=== PATIENT | male | born 1965 | race Caucasian/White ===

== ENCOUNTER 2017-10-11 19:19 | Emergency (ER) | payer OTHER ==
[~2017-10-11] VITALS: Ht 188 cm; Wt 93.0 kg
[2017-10-11 19:57] VITALS: BP 148/106
[2017-10-11] MEDS ORDERED: ASPirin 81 mg TAB PO ONE (20:00)
[2017-10-11] MEDS ORDERED: LORazepam 2MG/ML-1ML VIAL IV ONE (20:00)
[2017-10-11] MEDS ORDERED: SODIUM CHLORIDE 0.9% 1,000 ML IV ONE (20:00)
[2017-10-11] MEDS ORDERED: LORazepam 0.5 MG TAB PO ONE (20:15)
[2017-10-11 20:57] LABS: Basophils # (auto) 0.1 uL; Basophils % (auto) 1.3 % (0.0-2.0); Eosinophils # (auto) 0.2 uL; Eosinophils % (auto) 2.9 % (0.0-7.0); Hematocrit 44.3 % (41.0-53.0); Hemoglobin 15.4 g/dL (13.5-17.5); Lymphocytes # (auto) 1.9 uL; Lymphocytes % (auto) 24.2 % (10.0-50.0); Mean Corpuscular Hgb Conc. 34.9 g/dL (32.0-36.0); Mean Corpuscular Volume 94.5 fL (80.0-100.0); Monocytes # (auto) 0.8 uL; Neutrophils # (auto) 4.6 uL; Neutrophils % (auto) 60.6 % (37.0-80.0); Nucleated Red Blood Cells % 0.2 %; Platelet Count (auto) 210 10^3/uL (140-450); Red Blood Cells 4.68 10^6/uL (4.5-5.90); Red Cell Distribution Width 13.9 % (11.8-14.3); White Blood Cell 7.6 10^3/uL (4.4-10.8)
[2017-10-11 21:17] LABS: Alanine Aminotransferase 34 U/L (16-61); Albumin 4.1 g/dL (3.4-5.0); Anion Gap 7 (5-15); Aspartate Aminotransferase 22 U/L (15-37); BUN/Creatinine Ratio 18.2; Blood Alcohol < 3.0 mg/dL (0-5); Blood Urea Nitrogen 22 mg/dL (7-18); Calcium 8.6 mg/dL (8.5-10.1); Carbon Dioxide 26 mmol/L (21-32); Chloride 105 mmol/L (98-107); GFR African American 81 mL/min; GFR Non-African American 67 mL/min; Glucose 110 mg/dL (74-106); Magnesium 2.5 mg/dL (1.6-2.6); Potassium 3.9 mmol/L (3.5-5.1); Sodium 138 mmol/L (136-145)
[2017-10-11 21:22] LABS: Alkaline Phosphatase 56 U/L (45-117); Bilirubin, Total 1.1 mg/dL (0.2-1.0); Total Protein 7.8 g/dL (6.4-8.2)
== END 2017-10-11 20:29 | disposition left against medical advice (07) ==
LOC: ER 19:19
DX: F10.230 Alcohol dependence with withdrawal, uncomplicated (principal); I10 Essential (primary) hypertension; R07.9 Chest pain, unspecified
CPT/HCPCS: 36415; 80053; 80320; 83735; 83880; 84443; 84484; 85025; 93005; 94761

== ENCOUNTER 2018-11-27 17:29 | Emergency (ER) | payer OTHER ==
[~2018-11-27] VITALS: Ht 188 cm; Wt 90.7 kg
[2018-11-27 18:00] VITALS: BP 150/109
[2018-11-27 18:43] LABS: Basophils # (auto) 0.1 uL; Basophils % (auto) 1.1 % (0.0-2.0); Eosinophils # (auto) 0.1 uL; Eosinophils % (auto) 1.5 % (0.0-7.0); Hematocrit 44.7 % (41.0-53.0); Hemoglobin 15.7 g/dL (13.5-17.5); Lymphocytes # (auto) 1.6 uL; Lymphocytes % (auto) 21.2 % (10.0-50.0); Mean Corpuscular Hemoglobin 33.3 pg (28.0-32.0); Mean Corpuscular Hgb Conc. 35.2 g/dL (32.0-36.0); Mean Corpuscular Volume 94.6 fL (80.0-100.0); Monocytes # (auto) 0.7 uL; Neutrophils # (auto) 5.1 uL; Neutrophils % (auto) 67.2 % (37.0-80.0); Platelet Count (auto) 171 10^3/uL (140-450); Red Blood Cells 4.72 10^6/uL (4.5-5.90); Red Cell Distribution Width 13.6 % (11.8-14.3); White Blood Cell 7.7 10^3/uL (4.4-10.8)
[2018-11-27 18:59] LABS: Chloride 105 mmol/L (98-107); Potassium 3.5 mmol/L (3.5-5.1); Sodium 138 mmol/L (136-145)
[2018-11-27 19:04] LABS: Amphetamine Screen, Urine POSITIVE (NEGATIVE); Barbiturate Scree,Urine NEGATIVE (NEGATIVE); Benzodiazephine Screen, Urine NEGATIVE (NEGATIVE); Cannabinoid Screen, Urine NEGATIVE (NEGATIVE); Cocaine Screen, Urine NEGATIVE (NEGATIVE); Opiate Scree,Urine NEGATIVE (NEGATIVE); Phencyclidine Screen, Urine NEGATIVE (NEGATIVE)
[2018-11-27 19:05] LABS: Urine Bacteria NONE SEEN /hpf (None Seen); Urine Blood Negative /uL (Negative); Urine Specific Gravity 1.005 (1.001-1.035); Urine WBC <1 /hpf (0 - 3)
[2018-11-27 19:10] LABS: Alanine Aminotransferase 66 U/L (16-61); Albumin 4.3 g/dL (3.4-5.0); Alkaline Phosphatase 71 U/L (45-117); Anion Gap 8 (5-15); Aspartate Aminotransferase 32 U/L (15-37); BUN/Creatinine Ratio 9.6; Bilirubin, Total 1.1 mg/dL (0.2-1.0); Blood Urea Nitrogen 11 mg/dL (7-18); Calcium 8.8 mg/dL (8.5-10.1); Carbon Dioxide 25 mmol/L (21-32); GFR African American 86 mL/min; GFR Non-African American 71 mL/min; Glucose 115 mg/dL (74-106)
== END 2018-11-27 20:58 | disposition left against medical advice (07) ==
LOC: ER 17:32
DX: M54.9 Dorsalgia, unspecified (principal); Z53.21 Procedure and treatment not carried out due to patient leaving prior to being seen by health care provider
CPT/HCPCS: 36415; 74176; 80053; 80307; 81001; 84484; 85025; 93005

== ENCOUNTER 2018-11-30 03:50 | Emergency (ER) | payer SELFPAY ==
[~2018-11-30] VITALS: Ht 188 cm; Wt 90.7 kg
[2018-11-30 04:01] VITALS: BP 136/89
== END 2018-11-30 07:19 | disposition left against medical advice (07) ==
LOC: ER 03:52
DX: R10.9 Unspecified abdominal pain (principal); M54.5 Low back pain; Z53.21 Procedure and treatment not carried out due to patient leaving prior to being seen by health care provider